=== PATIENT | female | born 1990 | race Caucasian/White ===

== ENCOUNTER 2019-11-03 11:00 | Observation (INO) | payer BC, OTHER, SELFPAY ==
--- NOTE | 2019-11-03 11:00 | OBADM ---
This patient, Loretta Samuel, admitted to the OB room [facility] Post [facility] for observation. Patient/family oriented to hospital policies and general routines including ID bracelet, bed and alarms, visiting hours, pain management, procedures, bathroom and other care routines, personal items, smoking policy, room service/diet, and visiting hours. Patient/Family are encouraged to report perceived risks to care and to ask questions if they do not understand what they are told or what they should do.
[2019-11-03 11:40] VITALS: TEMP 37.3
[2019-11-03 11:58] LABS: Add Urine Microscopic? YES; Appearance Urine Cloudy (Clear); Bacteria Urine 4+ /hpf; Bilirubin Urine Negative (Negative); Blood Urine Negative (Negative); Color Urine Yellow (Yellow); Glucose Urine UA Negative (Negative); Ketones Urine 2+ mg/dL (Negative); Leukocyte Esterase Ur 2+ LEU/UL (NEGATIVE); Mucus Urine Heavy /lpf; Nitrate Urine Negative (Negative); Protein Urine 1+ mg/dL (Negative); Specific Grav Ur 1.029 (1.001-1.035); Squamous Epithelial Cell Urine Many /hpf (Few)
[2019-11-03 12:00] VITALS: BMI 33.1
[2019-11-03] MEDS: DEXTROSE 5%/LACTATED RINGERS 1,000 ML 999 ML IV CONT (13:17)
[2019-11-03] MEDS: ONDANSETRON INJ 4 MG/2 ML VIAL IV PUSH (13:18)
[2019-11-03] MEDS: SODIUM CHLORIDE 0.9% IV 1,000 ML 100 ML IV CONT (15:21)
[2019-11-03] MEDS: PROMETHAZINE HCL 25 MG/ML AMPUL 12.5 MG IV PUSH (15:21)
[2019-11-03] MEDS: NITROFURANTOIN MONOHYD MACROCR 100 MG CAP PO (15:21)
--- NOTE | 2019-11-03 18:45 | PC.NURSE ---
Pt very agitated with staff. Pt was sleeping and had been for some time prior to MD providing dc orders. Pt defensive as we tried to get through dc instructions. Discussed new orders for antibiotics of which pt states i don't have a uti, i've had one before , also attempted to discuss remedies for reflux while continuing nexium, pt refused. Instructed MD ordered US for am. Pt would need to eat and drink nothing after MN and return in am for testing. Pt again agitated about not having US today. Discussed pt has not been NPO so test would have to be in am. RN did offer to call and get orders to allow pt to stay overnight and have testing in morning. Pt yelling and states i'm going home, you guys have [place], i'm never coming back here . Pt began yelling and cussing at staff. Pt demanded discharge paperwork, sign and left. Scripts for antibiotic and imaging were provided as well as discharge instructions. Pt encouraged to fill script and complete dosing even though she is not symptomatic. Also urged pt to get imaging taken care of even if she does decide to get services at another facility. Pt states be quite, i'm leaving, i'll take this up with [place], i need my weekend . Pt then ambulated out independently.
--- NOTE | 2019-11-07 06:38 | PM.OBTRLD ---
OB - Triage/Final Diagnosis Visit Information Reason for evaluation: threatened labor Evaluation Laboratory results: Laboratory Tests 11/03/19 11:42 Urine Color Yellow Urine Appearance Cloudy H Urine pH 5.0 Ur Specific [place] 1.029 Urine Protein 1+ H Urine Glucose (UA) Negative Urine Ketones 2+ H Ur Blood (Man) Negative Urine Nitrate Negative Urine Bilirubin Negative Urine Urobilinogen 2.0 H Ur Leukocyte Esterase 2+ H Urine RBC 6-10 H Urine WBC 10-15 H Ur Squamous Epith Cells Many H Urine Bacteria 4+ H Urine Mucus Heavy H
== END 2019-11-03 18:52 | disposition home or self-care (01) ==
PROVIDERS: Admitting Provider Obstetrics & Gynecology; Visit Provider Obstetrics & Gynecology
DX: O47.9 False labor, unspecified (principal); Z3A.00 Weeks of gestation of pregnancy not specified
CPT/HCPCS: 81001; 87086; 96361; 96374; 96375; A9270; G0378; G0379; J2405; J2550; J7030; J7121

== ENCOUNTER 2019-11-04 10:57 | Outpatient (CLI) | payer BC, OTHER, SELFPAY ==
--- NOTE | ~2019-11-04 | US_ITS ---
EXAMINATION: US right upper quadrant DATE: 11/04/2019 11:23 INDICATION: Nausea and vomiting during TECHNIQUE: Multiple grayscale and Doppler ultrasound images of the abdomen were obtained. COMPARISON: None FINDINGS: The visualized portion of the pancreatic body is normal in appearance. The pancreatic head and tail are obscured by shadowing bowel gas. Visualized proximal inferior vena cava is normal. Liver has norm al echogenicity and contour, with a smooth surface. No liver lesion identified. No intrahepatic bilia ry duct dilation suspected. Portal venous flow was seen in the hepatopetal, normal direction and has normal Doppler waveform. 7 x 3 x 4 mm no shadowing echogenic likely polyp at the neck of the otherwis e normal gallbladder. No shadowing cholelithiasis. The common bile duct measures 3 mm in diameter whi ch is normal. Sonographic Machado sign was reported as negative by the solar panel technician. IMPRESSION: 1. 7 mm likely gallbladder polyp at the neck of the gallbladder. Recommend six-month follow-up ultras ound. Reviewed, dictated and finalized at location A. IMPRESSION: 1. 7 mm likely gallbladder polyp at the neck of the gallbladder. Recommend six- month follow-up ultrasound.
== END 2019-11-04 10:58 | disposition home or self-care (01) ==
LOC: ANHIMG 11:04
PROVIDERS: Visit Provider Obstetrics & Gynecology
DX: O21.9 Vomiting of pregnancy, unspecified (principal); K82.4 Cholesterolosis of gallbladder
CPT/HCPCS: 76705

== ENCOUNTER 2020-01-24 08:36 | Outpatient (CLI) | payer BC, MEDICAID, SELFPAY ==
[2020-01-24 09:36] LABS: Glucose Fasting Gestational 86 mg/dL (>/=95)
[2020-01-24 10:23] LABS: Glucose 1 Hour Gest 147 mg/dL (>/=180)
[2020-01-24 11:19] LABS: Glucose 2 Hour Gest 114 mg/dL (>/= 155)
[2020-01-24 12:37] LABS: Glucose 3 Hour Gest 133 mg/dL (>/=140)
== END 2020-01-24 08:37 | disposition home or self-care (01) ==
PROVIDERS: Visit Provider Obstetrics & Gynecology
DX: Z34.80 Encounter for supervision of other normal pregnancy, unspecified trimester (principal); Z13.0 Encounter for screening for diseases of the blood and blood-forming organs and certain disorders involving the immune mechanism
CPT/HCPCS: 36415; 82951; 82952

== ENCOUNTER 2020-02-22 06:51 | Observation (INO) | payer BC, MEDICAID, SELFPAY ==
--- NOTE | ~2020-02-22 | US_ITS ---
EXAMINATION: US abdomen limited DATE: 02/22/2020 08:06 INDICATION: Abdominal pain. TECHNIQUE: Multiple grayscale and Doppler ultrasound images of the abdomen were obtained. COMPARISON: Ultrasound 11/04/2019 FINDINGS: The pancreas is obscured by bowel gas. The liver is normal without focal lesion. There is n ormal flow in main portal vein. The gallbladder is normal in size. No gallstones or gallbladder wall thickening. There is no sonographic Machado sign. The common duct is normal and measures 4 mm. IMPRESSION: 1. Normal right upper quadrant ultrasound. Reviewed, dictated and finalized at location A. OR ABAP DEVELOPER
[2020-02-22 07:16] VITALS: BP 109/63; PULSE 92
[2020-02-22 07:31] VITALS: BP 123/52; PULSE 98
[2020-02-22] MEDS: HYDROcodone/acetaminophen (*CRX) 10-325 MG TABLET 1 TAB PO (07:37)
[2020-02-22 07:42] VITALS: BMI 35.2
[2020-02-22 07:46] VITALS: BP 106/57; PULSE 85
[2020-02-22 07:46] LABS: Basophils Percent Auto 0.2 % (0.2-1.2); Eosinophils Absolute Auto 0.2 K/mm3 (0-0.3); Eosinophils Percent Auto 1.3 % (0-4.4); Hematocrit 33.8 % (37.0-47.0); Hemoglobin 11.3 g/dL (12.0-15.0); Immature Granulocyte Absolute 0.09 K/mm3 (0.00-0.031); Immature Granulocyte Percent A 0.7 % (0-0.5); Lymphocytes Absolute Auto 1.31 K/mm3 (0.9-3.2); Lymphocytes Percent Auto 10.6 % (18.3-44.2); Mean Corpuscular HGB Conc 33.4 g/dl (32-36); Mean Corpuscular Hemoglobin 28.4 pg (26-34); Mean Corpuscular Volume 84.9 fl (80-100); Mean Platelet Volume 10.4 fl (7.4-10.4); Monocytes Absolute Auto 0.8 K/mm3 (0.1-0.6); Monocytes Percent Auto 6.2 % (2.6-8.5); Platelet Count Result 279 k/mm3 (150-375); Red Blood Count 3.98 M/mm3 (4.2-5.4); White Blood Count 12.4 K/mm3 (4.5-10.0)
--- NOTE | 2020-02-22 07:50 | PM.OBTRLD ---
OB - Triage/Final Diagnosis Visit Information Date of evaluation: 02/22/20 Reason for evaluation: other (back pain) Evaluation Vital signs: Vital Signs - 24 hr 02/22/20 07:16 02/22/20 07:31 02/22/20 07:46 Pulse Rate 92 98 85 Blood Pressure 109/63 123/52 L 106/57 L
[2020-02-22 07:53] LABS: Alanine Aminotransferase 10 U/L (4-35); Albumin Level 3.1 g/dL (3.5-5.1); Alkaline Phosphatase 94 U/L (38-126); Anion Gap 9 mmol/L (8-16); Aspartate Amino Transferase 17 U/L (14-36); Bilirubin,Total 0.3 mg/dL (0.2-1.3); Calcium 8.7 mg/dL (8.4-10.2); Carbon Dioxide 22 mmol/L (22-30); Chloride 106 mmol/L (98-107); Estimated CRCL calculation 176 ml/min; Estimated Glomerular Filt Rate > 60; Glucose 98 mg/dL (65-105); Potassium 3.5 mmol/L (3.4-5.0); Sodium 137 mmol/L (137-145); Uric Acid 4.2 mg/dL (2.5-7.5)
[2020-02-22 07:54] LABS: Blood Urea Nitrogen < 2 mg/dL (7-17)
[2020-02-22] MEDS: TERBUTALINE SULFATE 1 MG/ML VIAL 0.25 MG SUB-Q (09:10)
[2020-02-22 09:12] VITALS: BP 103/60; PULSE 87
[2020-02-22 09:28] LABS: Add Urine Microscopic? YES; Appearance Urine Cloudy (Clear); Bacteria Urine Trace /hpf; Bilirubin Urine Negative (Negative); Blood Urine Negative (Negative); Budding Yeast Urine Present /hpf; Color Urine Yellow (Yellow); Glucose Urine UA Negative (Negative); Ketones Urine Trace mg/dL (Negative); Leukocyte Esterase Ur Negative LEU/UL (Negative); Mucus Urine Heavy /lpf; Nitrate Urine Negative (Negative); Protein Urine 2+ mg/dL (Negative); RBC Urine 21-50 /hpf (0-2); Specific Grav Ur 1.026 (1.001-1.035); Squamous Epithelial Cell Urine Few /hpf (Few); Transitional Epi Cells Urine Rare /hpf (None Seen); Urobilinogen Urine Negative mg/dL (<2.0)
[2020-02-22 09:31] VITALS: BP 82/64; PULSE 87
[2020-02-22 10:01] VITALS: BP 97/44; PULSE 81
[2020-02-22 10:31] LABS: Fetal Fibronectin Positive
[2020-02-22] MEDS: CEPHALEXIN 500 MG CAPSULE PO (10:31)
== END 2020-02-22 10:45 | disposition home or self-care (01) ==
PROVIDERS: Admitting Provider Obstetrics & Gynecology; Visit Provider Obstetrics & Gynecology
DX: O99.891 Other specified diseases and conditions complicating pregnancy (principal); M54.9 Dorsalgia, unspecified; Z3A.00 Weeks of gestation of pregnancy not specified
CPT/HCPCS: 36415; 76705; 80053; 81001; 82731; 84550; 85025; 87086; 96372; A9270; G0378; G0379; J3105

== ENCOUNTER 2020-03-27 05:05 | Observation (INO) | payer BC, MEDICAID, SELFPAY ==
[2020-03-27 07:10] LABS: Add Urine Microscopic? YES; Appearance Urine Clear (Clear); Bacteria Urine Trace /hpf; Bilirubin Urine Negative (Negative); Blood Urine Negative (Negative); Color Urine Yellow (Yellow); Glucose Urine UA Negative (Negative); Ketones Urine 2+ mg/dL (Negative); Leukocyte Esterase Ur Negative LEU/UL (NEGATIVE); Mucus Urine Heavy /lpf; Nitrate Urine Negative (Negative); Protein Urine 1+ mg/dL (Negative); RBC Urine 0-2 /hpf (0-2); Specific Grav Ur 1.024 (1.001-1.035); Squamous Epithelial Cell Urine Occasional /hpf (Few)
--- NOTE | 2020-03-27 07:19 | OBADM ---
This patient, Loretta Samuel, admitted to the OB room Labor/Delivery/Recovery 105 for observation. Patient/family oriented to hospital policies and general routines including ID bracelet, bed and alarms, visiting hours, pain management, procedures, bathroom and other care routines, personal items, smoking policy, room service/diet, and visiting hours. Patient/Family are encouraged to report perceived risks to care and to ask questions if they do not understand what they are told or what they should do.
--- NOTE | 2020-03-27 08:08 | P.PNOB_ITS ---
OB - Triage/Final Diagnosis Visit Information Date of evaluation: 03/27/20 Reason for evaluation: threatened labor Evaluation Laboratory results: Laboratory Tests 03/27/20 06:55 Urine Color Yellow Urine Appearance Clear Urine pH 6.0 Ur Specific [place] 1.024 Urine Protein 1+ H Urine Glucose (UA) Negative Urine Ketones 2+ H Ur Blood (Man) Negative Urine Nitrate Negative Urine Bilirubin Negative Urine Urobilinogen 2.0 H Ur Leukocyte Esterase Negative Urine RBC 0-2 Urine WBC 4-6 H Ur Squamous Epith Cells Occasional Urine Bacteria Trace Urine Mucus Heavy H
== END 2020-03-27 07:50 | disposition home or self-care (01) ==
PROVIDERS: Admitting Provider Obstetrics & Gynecology; Visit Provider Obstetrics & Gynecology
DX: O47.03 False labor before 37 completed weeks of gestation, third trimester (principal); Z3A.38 38 weeks gestation of pregnancy
CPT/HCPCS: 81001; G0378; G0379

== ENCOUNTER 2020-04-03 04:51 | Inpatient (IN) | payer BC, MEDICAID, SELFPAY ==
[2020-04-03] VITALS (124 sets, daily range): BP systolic 69–142; BP diastolic 37–91; PULSE 68–156; RESP 14–18; TEMP 36.4–37.3; O2SAT 84–100; BMI 35.4
--- NOTE | 2020-04-03 05:00 | LDADM ---
This patient, Loretta Samuel, was admitted to Labor/Delivery/Recovery 106 on 04/03/20 at 04:51. Plans for labor, pain management and were discussed with patient. Patient/family oriented to hospital policies and general routines including ID bracelet, bed and alarms, visiting hours, pain management, procedures, bathroom and other care routines, personal items, smoking policy, room service/diet and guest tray routines, infant security routines, and visiting hours. Patient/Family are encouraged to report perceived risks to care and to ask questions if they do not understand what they are told or what they should do. See OBIX for further documentation.
[2020-04-03] MEDS: OXYTOCIN 30 UNITS/NS 500 ML 30 UNITS/500 ML BAG 6 UNITS IV CONT (05:42)
[2020-04-03] MEDS: LACTATED RINGERS 1,000 ML 125 ML IV CONT ×3 (05:42→23:54)
[2020-04-03 05:46] LABS: Basophils Percent Auto 0.3 % (0.2-1.2); Eosinophils Absolute Auto 0.1 K/mm3 (0-0.3); Eosinophils Percent Auto 1.3 % (0-4.4); Hematocrit 34.6 % (37.0-47.0); Hemoglobin 11.1 g/dL (12.0-15.0); Immature Granulocyte Absolute 0.04 K/mm3 (0.00-0.031); Immature Granulocyte Percent A 0.4 % (0-0.5); Lymphocytes Absolute Auto 1.68 K/mm3 (0.9-3.2); Lymphocytes Percent Auto 17.1 % (18.3-44.2); Mean Corpuscular HGB Conc 32.1 g/dl (32-36); Mean Corpuscular Hemoglobin 25.9 pg (26-34); Mean Corpuscular Volume 80.8 fl (80-100); Monocytes Absolute Auto 0.6 K/mm3 (0.1-0.6); Monocytes Percent Auto 5.8 % (2.6-8.5); Neutrophils Absolute Auto 7.4 K/mm3 (1.3-6.7); Neutrophils Percent Auto 75.1 % (45.5-73.1); Platelet Count Result 271 k/mm3 (150-375); Red Blood Count 4.28 M/mm3 (4.2-5.4); Red Cell Distribution Width 13.9 % (11.5-14.5); White Blood Count 9.8 K/mm3 (4.5-10.0)
--- NOTE | 2020-04-03 06:30 | PM.IMHP ---
H&P: HPI History of Present Illness Date/Time: 04/03/20 06:30 Chief Complaint: iol Narrative: Loretta Samuel is a 29 year old female whose last menstrual period was 07/05/2019, EDC is 04/10/2020, confirmed by early ultrasound presents at 39 weeks gestation for induction of labor. She has a history of lupus on no meds and she is positive for carrying MTHFR. Her cervix is favorable. She did have an abnormal diabetic test but a normal 3hour GTT she is negative for group B strep Review of Systems Review of Systems: All systems reviewed & are unremarkable except as noted in HPI and below PMFSH Social History Social History Years smoked: 3 Smoking status: Former smoker Second hand tobacco smoke exposure: No Substance use: never Gender identity (if verbalized by the patient): Female Sexual Orientation (if Verbalized by the Patient): Straight or Heterosexual Spiritual care concerns: No Meds Home Medications and Allergies Home Medications Medication Instructions Recorded Confirmed Type omeprazole 1 mg PO DAILY 11/03/19 04/03/20 History albuterol sulfate 2 puff INHALATION PRN 04/03/20 04/03/20 History vit [id number] 1 tablet PO DAILY 04/03/20 04/03/20 History [Classic ] Allergies Allergy/AdvReac Type Severity Reaction Status Date / Time amoxicillin Allergy Severe Anaphylaxis Verified 03/11/20 15:16 Penicillins Allergy Severe Anaphylaxis Verified 03/11/20 15:16 ibuprofen Allergy Vomiting Verified 03/11/20 15:16 Latex, Natural Rubber Allergy Rash Verified 03/11/20 15:16 Vital Signs Vital Signs - 24 hr 04/03/20 05:12 04/03/20 05:31 04/03/20 06:01 Temperature 97.9 F Pulse Rate 82 93 Blood Pressure 120/61 130/67 Exam Const: General: no acute distress Eyes: General: appearance normal, both eyes and all related structures Neck: Neck: supple and no JVD Thyroid: thyroid normal Resp: Effort & Inspection: normal respiratory effort Auscultation: clear to auscultation bilaterally Cardio: Rate: regular rate Rhythm: regular rhythm GI: Inspection: non-distended GI Palp: Yes Soft to palpation, No Tenderness to palpation present (GI) and No Guarding due to palpation present (GI) Auscultation: normal bowel sounds : External Female Exam: normal external appearance Speculum Exam - Cervix: normal appearance of the cervix ( cervix 3 / 80/-1. AROM clear. FHTs reassuring) Skin: General skin exam: no rashes or lesions noted Extrem: General: normal to inspection and no edema Psych: Mental Status: mental status grossly normal Affect: normal affect H&P: Results Labs Labs: Short CBC 04/03/20 Range/Units 05:23 WBC 9.8 (4.5-10.0) K/mm3 Hgb 11.1 L (12.0-15.0) g/dL Hct 34.6 L (37.0-47.0) % Plt Count 271 (150-375) k/mm3 Assessment and Plan Additional Plan impression: Term with favorable cervix Plan: Medical induction of labor.
--- NOTE | 2020-04-03 07:58 | WPDANESEPP ---
Anes - Eval Pre Procedure Procedure: Labor epidural Date/Time: 04/03/20 07:58 Surgeon: Lucretia Henderson Preop Diagnosis: Abd pain with contractions Pre Op Diagnosis: IOL Patient Data Age: 29 Gender: F Height: 5 ft 2 in Weight: 88 kg Last Vital Signs Temp 97.9 F 04/03/20 05:12 Pulse 75 04/03/20 07:31 BP 124/59 L 04/03/20 07:31 Allergies Allergy/AdvReac Type Severity Reaction Status Date / Time amoxicillin Allergy Severe Anaphylaxis Verified 03/11/20 15:16 Penicillins Allergy Severe Anaphylaxis Verified 03/11/20 15:16 ibuprofen Allergy Vomiting Verified 03/11/20 15:16 Latex, Natural Rubber Allergy Rash Verified 03/11/20 15:16 Home Medications Medication Instructions Recorded Confirmed Type omeprazole 1 mg PO DAILY 11/03/19 04/03/20 History albuterol sulfate 2 puff INHALATION PRN 04/03/20 04/03/20 History vit [id number] 1 tablet PO DAILY 04/03/20 04/03/20 History [Classic ] Laboratory Tests 04/03/20 04/03/20 04/03/20 05:23 05:23 05:23 WBC 9.8 K/mm3 K/mm3 (4.5-10.0) RBC 4.28 M/mm3 M/mm3 (4.2-5.4) Hgb 11.1 g/dL L g/dL (12.0-15.0) Hct 34.6 % L % (37.0-47.0) MCV 80.8 fl fl (80-100) MCH 25.9 pg L pg (26-34) MCHC 32.1 g/dl g/dl (32-36) RDW 13.9 % % (11.5-14.5) Plt Count 271 k/mm3 k/mm3 (150-375) MPV 11.0 fl H fl (7.4-10.4) Immature Gran % (Auto) 0.4 % % (0-0.5) Neut % (Auto) 75.1 % H % (45.5-73.1) Lymph % (Auto) 17.1 % L % (18.3-44.2) [place] % (Auto) 5.8 % % (2.6-8.5) Eos % (Auto) 1.3 % % (0-4.4) Baso % (Auto) 0.3 % % (0.2-1.2) Lymph # (Auto) 1.68 K/mm3 K/mm3 (0.9-3.2) [place] # (Auto) 0.6 K/mm3 K/mm3 (0.1-0.6) Eos # (Auto) 0.1 K/mm3 K/mm3 (0-0.3) Baso # (Auto) 0.0 K/mm3 K/mm3 (0.0-0.1) Abs Immat Gran (auto) 0.04 K/mm3 H K/mm3 (0.00-0.031) Absolute Neuts (auto) 7.4 K/mm3 H K/mm3 (1.3-6.7) Absolute Nucleated RBC 0.0 K/mm3 K/mm3 (0.0-0.012) Nucleated RBC % 0.0 % % (0.0-0.2) RPR Pending Blood Type A Positive Antibody Screen Negative : gestational age HCG: positive Patient hx anesthesia problems: other (possible lidocaine reaction) Family hx anesthesia problems: none PMFSH Past Medical History Medical History History of smoking Lupus Obesity and not yet delivered Social History Social History Years smoked: 3 Smoking status: Former smoker Second hand tobacco smoke exposure: No Substance use: never Gender identity (if verbalized by the patient): Female Sexual Orientation (if Verbalized by the Patient): Straight or Heterosexual Spiritual care concerns: No Exam Day of Procedure 04/03/20 07:58
[2020-04-03] MEDS: FAMOTIDINE 20 MG/2 ML VIAL IV PUSH (08:12)
[2020-04-03] MEDS: fentaNYL CITRATE INJ (*CRX) 100 MCG/2 ML VIAL 50 MCG IV PUSH (08:43)
[2020-04-03 10:38] LABS: Rapid Plasma Reagin Non-Reactive (NonReactive)
[2020-04-03] MEDS: ONDANSETRON INJ 4 MG/2 ML VIAL IV PUSH ×2 (10:44→23:55)
--- NOTE | 2020-04-03 11:14 | P.PNOB_ITS ---
OB - PN: Subj Subjective Date/time seen: 04/03/20 11:14 cx 4.5 by rn exam fhts reassuring OB - PN: Obj Data Labs CBC & Chem 7: 04/03/20 05:23 Labs: Laboratory Results - last 24 hr 04/03/20 04/03/20 04/03/20 05:23 05:23 05:23 WBC 9.8 RBC 4.28 Hgb 11.1 L Hct 34.6 L MCV 80.8 MCH 25.9 L MCHC 32.1 RDW 13.9 Plt Count 271 MPV 11.0 H Immature Gran % (Auto) 0.4 Neut % (Auto) 75.1 H Lymph % (Auto) 17.1 L [place] % (Auto) 5.8 Eos % (Auto) 1.3 Baso % (Auto) 0.3 Lymph # (Auto) 1.68 [place] # (Auto) 0.6 Eos # (Auto) 0.1 Baso # (Auto) 0.0 Abs Immat Gran (auto) 0.04 H Absolute Neuts (auto) 7.4 H Absolute Nucleated RBC 0.0 Nucleated RBC % 0.0 RPR Non-reactive Blood Type A Positive Antibody Screen Negative OB - PN A/P Time Spent With Patient Time: Total time spent is greater than 50% in coordination of care (as docume nted) at patient's floor/unit and/or counseling patient:
--- NOTE | 2020-04-03 14:10 | P.PNOB_ITS ---
OB - PN: Subj Subjective Date/time seen: 04/03/20 14:10 cx complete. pushing fhts reassuring OB - PN: Obj Data Labs CBC & Chem 7: 04/03/20 05:23 Labs: Laboratory Results - last 24 hr 04/03/20 04/03/20 04/03/20 05:23 05:23 05:23 WBC 9.8 RBC 4.28 Hgb 11.1 L Hct 34.6 L MCV 80.8 MCH 25.9 L MCHC 32.1 RDW 13.9 Plt Count 271 MPV 11.0 H Immature Gran % (Auto) 0.4 Neut % (Auto) 75.1 H Lymph % (Auto) 17.1 L [place] % (Auto) 5.8 Eos % (Auto) 1.3 Baso % (Auto) 0.3 Lymph # (Auto) 1.68 [place] # (Auto) 0.6 Eos # (Auto) 0.1 Baso # (Auto) 0.0 Abs Immat Gran (auto) 0.04 H Absolute Neuts (auto) 7.4 H Absolute Nucleated RBC 0.0 Nucleated RBC % 0.0 RPR Non-reactive Blood Type A Positive Antibody Screen Negative OB - PN A/P Time Spent With Patient Time: Total time spent is greater than 50% in coordination of care (as do cumented) at patient's floor/unit and/or counseling patient:
--- NOTE | 2020-04-03 16:09 | P.PNOB_ITS ---
OB - PN: Subj Subjective Date/time seen: 04/03/20 16:09 complete/pushing fhts ok OB - PN: Obj Data Labs CBC & Chem 7: 04/03/20 05:23 Labs: Laboratory Results - last 24 hr 04/03/20 04/03/20 04/03/20 05:23 05:23 05:23 WBC 9.8 RBC 4.28 Hgb 11.1 L Hct 34.6 L MCV 80.8 MCH 25.9 L MCHC 32.1 RDW 13.9 Plt Count 271 MPV 11.0 H Immature Gran % (Auto) 0.4 Neut % (Auto) 75.1 H Lymph % (Auto) 17.1 L [place] % (Auto) 5.8 Eos % (Auto) 1.3 Baso % (Auto) 0.3 Lymph # (Auto) 1.68 [place] # (Auto) 0.6 Eos # (Auto) 0.1 Baso # (Auto) 0.0 Abs Immat Gran (auto) 0.04 H Absolute Neuts (auto) 7.4 H Absolute Nucleated RBC 0.0 Nucleated RBC % 0.0 RPR Non-reactive Blood Type A Positive Antibody Screen Negative OB - PN A/P Time Spent With Patient Time: Total time spent is greater than 50% in coordination of care (as documented) at patient's floor/unit and/or counseling patient:
--- NOTE | 2020-04-03 17:03 | P.PNOB_ITS ---
OB - PN: Subj Subjective Date/time seen: 04/03/20 17:03 no progress fhts ok offered section. risks/benefits OB - PN: Obj Data Labs CBC & Chem 7: 04/03/20 05:23 Labs: Laboratory Results - last 24 hr 04/03/20 04/03/20 04/03/20 05:23 05:23 05:23 WBC 9.8 RBC 4.28 Hgb 11.1 L Hct 34.6 L MCV 80.8 MCH 25.9 L MCHC 32.1 RDW 13.9 Plt Count 271 MPV 11.0 H Immature Gran % (Auto) 0.4 Neut % (Auto) 75.1 H Lymph % (Auto) 17.1 L [place] % (Auto) 5.8 Eos % (Auto) 1.3 Baso % (Auto) 0.3 Lymph # (Auto) 1.68 [place] # (Auto) 0.6 Eos # (Auto) 0.1 Baso # (Auto) 0.0 Abs Immat Gran (auto) 0.04 H Absolute Neuts (auto) 7.4 H Absolute Nucleated RBC 0.0 Nucleated RBC % 0.0 RPR Non-reactive Blood Type A Positive Antibody Screen Negative OB - PN A/P Time Spent With Patient Time: Total time spent is greater than 50% in coordination of care (as documented) at patient's floor/unit and/or counseling patient:
--- NOTE | 2020-04-03 18:26 | PM.PROC ---
Procedure Note - Detailed Date of procedure: 04/03/20 Pre-op diagnosis: IOL Surgeon: Claude Ervin MD Postop diagnosis: Failure to progress Procedure: Low-transverse section Findings: Male infant 6 lb 3 oz Apgars 6 and 7 at 1 and 5 minutes respectively with nuchal cord x2 Q BL: 370cc Anesthesia spinal Complications: None Description of procedure: The patient was prepped draped in normal sterile fashion placed in the supine position. Under excellent spinal anesthetic the abdomen was entered in a Pfannenstiel fashion progressed to layers to the fascia. Fascia incised in upward outward fashion bilaterally. Underlying muscles were sharply dissected. Parietal peritoneum L by Gabby clamps. A bladder blade was placed. A bladder flap was formed. The bladder blade returned. A low-transverse incision made the head delivered in the MARY position. Nuchal cord noted be loose x2 relieve round occiput. Anterior posterior shoulder delivered spontaneously. Cord clamped x2 and cut and infant passed off the table with a cry. Placenta delivered intact manually. Uterus inspected for any debris in none present. The incision was closed with 0 Vicryl from lateral edge to lateral edge. This was followed by 2nd imbricating running locking 0 Vicryl from lateral edge to lateral edge. Hemostasis was assured. Blood loss was estimated. The ovaries and tubes appeared within normal limits. The incision inspected 1 last time and noted be hemostatic. The uterus returned to the abdomen. The laps removed and accounted for. The uterine incision inspected 1 last time and noted be hemostatic. The fascia closed with continuous running 0 Vicryl from lateral edge to midline bilaterally. Irrigation of the subcutaneous layer and the skin closed with 4 O Monocryl and glue. Blood loss was 370 by Q BL. All sponge, needle, instrument counts were correct. There were no immediate complications
--- NOTE | 2020-04-03 20:45 | PC.NURSE ---
This patient, Loretta Samuel, was received from Labor & Delivery on 04/03/20 at 2045. Patient/family oriented to unit policies and routines
--- NOTE | 2020-04-03 21:17 | PC.NURSE ---
Pitocin bag from labor and delivery used as the 125ml/hr. 450mls left in the bag prior to administration.
[2020-04-03] MEDS: HYDROcodone/acetaminophen (*CRX) 5-325 MG TABLET 1 TAB PO (23:55)
[2020-04-04 00:29] VITALS: BP 99/54; PULSE 84; RESP 18; TEMP 37; O2SAT 98
[2020-04-04 04:00] VITALS: BP 97/45; PULSE 79; RESP 16; TEMP 37.1; O2SAT 97
[2020-04-04] MEDS: HYDROcodone/acetaminophen (*CRX) 10-325 MG TABLET 1 TAB PO ×3 (04:30→15:52)
[2020-04-04 04:58] LABS: Hematocrit 29.1 % (37.0-47.0); Hemoglobin 9.6 g/dL (12.0-15.0)
--- NOTE | 2020-04-04 05:06 | P.PNOB_ITS ---
OB - PN: Subj Subjective Date/time seen: 04/04/20 05:06 Patient comments: no complaints and pain well controlled baby status: doing well OB - PN: Obj Data Labs CBC & Chem 7: 04/03/20 05:23 Labs: Laboratory Results - last 24 hr 04/03/20 04/03/20 04/03/20 05:23 05:23 05:23 WBC 9.8 RBC 4.28 Hgb 11.1 L Hct 34.6 L MCV 80.8 MCH 25.9 L MCHC 32.1 RDW 13.9 Plt Count 271 MPV 11.0 H Immature Gran % (Auto) 0.4 Neut % (Auto) 75.1 H Lymph % (Auto) 17.1 L [place] % (Auto) 5.8 Eos % (Auto) 1.3 Baso % (Auto) 0.3 Lymph # (Auto) 1.68 [place] # (Auto) 0.6 Eos # (Auto) 0.1 Baso # (Auto) 0.0 Abs Immat Gran (auto) 0.04 H Absolute Neuts (auto) 7.4 H Absolute Nucleated RBC 0.0 Nucleated RBC % 0.0 RPR Non-reactive Blood Type A Positive Antibody Screen Negative OB - PN A/P Plan day: 1 Plan: routine care Time Spent With Patient Time: Total time spent is greater than 50% in coordination of care (as documented) at patient's floor/unit and/or counseling patient: Time with patient: less than 15 minutes Review of Systems Review of Systems: All systems reviewed & are unremarkable except as noted in HPI and below Exam Const: General: no acute distress Eyes: General: appearance normal, both eyes and all related structures Neck: Neck: supple and no JVD Thyroid: thyroid normal Resp: Effort & Inspection: normal respiratory effort Auscultation: clear to auscultation bilaterally Cardio: Rate: regular rate Rhythm: regular rhythm GI: Inspection: incision (cdi) : General: Yes bladder normal to palpation External Female Exam: normal external appearance Speculum Exam - Vagina: normal vaginal discharge and No vaginal bleeding Speculum Exam - Cervix: nontender Bimanual exam- vagina & uterus: bladder normal to palpation and No Cervical tenderness present OB/external & speculum: No vaginal bleeding Skin: General skin exam: no rashes or lesions noted Extrem: General: normal to inspection and no edema Psych: Mental Status: mental status grossly normal Affect: normal affect
[2020-04-04 08:00] VITALS: BP 110/58; PULSE 90; RESP 18; TEMP 36.2; O2SAT 100
--- NOTE | 2020-04-04 08:14 | WPDANLDPN2 ---
Anes-Prog Note L&D Date/Time: 04/04/20 08:14 Comfortable throughout: section Neuraxial method: spinal Epidural/Spinal procedure site: clean & non-tender Neuro status: Neuro function grossly intact. Cardiovascular status: normal Respiratory status: normal Airway patency: baseline Mental status: baseline Post-Op hydration status: normal Vital Signs: Last Vital Signs Temp 37.1 C 04/04/20 04:00 Pulse 79 04/04/20 04:00 Resp 16 04/04/20 04:00 BP 97/45 L 04/04/20 04:00 Pulse Ox 97 04/04/20 04:00 Pain score (VAS): 7 I/O: Intake & Output 04/03/20 04/04/20 04/04/20 23:59 07:59 15:59 Intake Total 350 Output Total 348 1000 Balance -348 -650 Post-procedural complaints: none Patient feedback: Patient satisfied with anesthetic care.
--- NOTE | 2020-04-04 08:14 | WPDANLDNPN2 ---
Anes-Prog Note L&D-Neuraxial Date/Time: 04/04/20 08:14 Neuraxial medications: intrathecal PF morphine Opiod-related complaints: none Patient feedback: Patient satisfied with post-operative pain management.
--- NOTE | 2020-04-04 08:30 | PC.NURSE ---
Encouraged pt. that she will need to get up and sit in chair to keep from building up with gas. Pt. refused at this time.
[2020-04-04] MEDS: SIMETHICONE 80 MG TAB.CHEW PO ×5 (08:50→23:24)
[2020-04-04] MEDS: MULTIVIT/MIN/PREN/FOL AC/IRON TABLET 1 TAB PO (08:50)
[2020-04-04] MEDS: HYDROcodone/acetaminophen (*CRX) 5-325 MG TABLET 1 TAB PO (08:50)
[2020-04-04] MEDS: LORATADINE 10 MG TABLET PO (08:50)
[2020-04-04] MEDS: DOCUSATE SODIUM 100 MG CAPSULE PO ×2 (08:51→15:52)
[2020-04-04] MEDS: POLYSACCHARIDE IRON COMPLEX 150 MG CAPSULE PO ×2 (08:52→15:52)
--- NOTE | 2020-04-04 10:30 | PC.NURSE ---
Pt sleeping quietly at this time when observed. Respirations even and unlabored. No distress noted. in nursery.
[2020-04-04 12:00] VITALS: BP 108/64; PULSE 86; RESP 18; TEMP 36.6
[2020-04-04] MEDS: NAPROXEN SODIUM 220 MG TABLET PO (12:09)
--- NOTE | 2020-04-04 12:10 | PC.NURSE ---
Pt. crying and stating that she is in pain. Right shoulder hurting and feels as if she has pulled a muscle. Instructed pt. that symptoms were gas related and she needs to ambulate in hallway is help with movement of air trapped in abdomen. States that her pain is under the ribs on right side and it is hard to breathe in deep. Again, reinforced to pt. that she needs to ambulate. Pt very upset and refusing to move at this time. Heating pad applied to right shoulder. Pain meds given.
[2020-04-04] MEDS: KETOROLAC 30 MG/ML VIAL (*BKC) IV PUSH (15:53)
[2020-04-04 16:00] VITALS: BP 108/64; PULSE 86; RESP 18; TEMP 36.6
[2020-04-04 19:20] VITALS: BP 103/51; PULSE 77; RESP 18; TEMP 36.8
[2020-04-05] MEDS: KETOROLAC 10 MG TABLET PO ×4 (01:40→20:43)
--- NOTE | 2020-04-05 06:57 | PM.OBPNVD ---
OB - PN: Subj Subjective Date/time seen: 04/05/20 06:57 Patient comments: no complaints and pain well controlled baby status: doing well OB - PN: Obj Data Labs CBC & Chem 7: 04/04/20 04:22 OB - PN A/P Plan day: 2 Plan: routine care Time Spent With Patient Time: Total time spent is greater than 50% in coordination of care (as documented) at patient's floor/unit and/or counseling patient: Time with patient: less than 15 minutes Review of Systems Review of Systems: All systems reviewed & are unremarkable except as noted in HPI and below Exam Const: General: no acute distress Eyes: General: appearance normal, both eyes and all related structures Neck: Neck: supple and no JVD Thyroid: thyroid normal Resp: Effort & Inspection: normal respiratory effort Auscultation: clear to auscultation bilaterally Cardio: Rate: regular rate Rhythm: regular rhythm GI: Inspection: non-distended GI Palp: Yes Soft to palpation, No Tenderness to palpation present (GI) and No Guarding due to palpation present (GI) Auscultation: normal bowel sounds : General: Yes bladder normal to palpation External Female Exam: normal external appearance Speculum Exam - Vagina: normal vaginal discharge and No vaginal bleeding Speculum Exam - Cervix: nontender Bimanual exam- vagina & uterus: bladder normal to palpation and No Cervical tenderness present OB/external & speculum: No vaginal bleeding Skin: General skin exam: no rashes or lesions noted Extrem: General: normal to inspection and no edema Psych: Mental Status: mental status grossly normal Affect: normal affect
[2020-04-05] MEDS: SIMETHICONE 80 MG TAB.CHEW PO ×3 (07:14→20:43)
[2020-04-05 07:15] VITALS: BP 105/61; PULSE 85; RESP 18; TEMP 36.6; O2SAT 97
[2020-04-05] MEDS: DOCUSATE SODIUM 100 MG CAPSULE PO ×2 (10:35→20:43)
[2020-04-05] MEDS: MULTIVIT/MIN/PREN/FOL AC/IRON TABLET 1 TAB PO (10:35)
[2020-04-05] MEDS: SERTRALINE HCL 50 MG TABLET PO (10:35)
[2020-04-05] MEDS: POLYSACCHARIDE IRON COMPLEX 150 MG CAPSULE PO ×2 (10:35→20:43)
--- NOTE | 2020-04-05 16:54 | PC.NURSE ---
0900 Breast feeding note; pt asked that nurse not visit her today. This request was honored.
[2020-04-05] MEDS: ZOLPIDEM TARTRATE (*CRX) 5 MG TABLET PO (20:43)
[2020-04-05 20:45] VITALS: BP 111/65; PULSE 79; RESP 18; TEMP 36.9; O2SAT 100
[2020-04-06] MEDS: KETOROLAC 10 MG TABLET PO ×2 (02:48→09:38)
[2020-04-06] MEDS: SIMETHICONE 80 MG TAB.CHEW PO ×2 (02:48→09:38)
--- NOTE | 2020-04-06 06:44 | P.DS_ITS ---
DS: Admitting Diagnosis Admitting Diagnosis Admitting Diagnosis: term iup DS: Summary Hospital Course Reason for hospitalization: [facility] Hospital Course: The patient was admitted for induction of labor. She failed to progress and underwent low-transverse section. She has a history of depression and anxiety and was began Zoloft. She was not homicidal or suicidal and contract was undertaken per protocol if either of these things occurred. She remained afebrile. She was up, without difficulty, passing gas, eating, ambulating, and generally without complaints Time Spent with Patient Time attestation: Total time spent providing and/or coordinating discharge services: Exam Const: General: no acute distress Eyes: General: appearance normal, both eyes and all related structures Neck: Neck: supple and no JVD Thyroid: thyroid normal Resp: Effort & Inspection: normal respiratory effort Auscultation: clear to auscultation bilaterally Cardio: Rate: regular rate Rhythm: regular rhythm GI: Inspection: non-distended GI Palp: Yes Soft to palpation, No Tenderness to palpation present (GI) and No Guarding due to palpation present (GI) Auscultation: normal bowel sounds : General: Yes bladder normal to palpation External Female Exam: normal external appearance Speculum Exam - Vagina: normal vaginal discharge and No vaginal bleeding Speculum Exam - Cervix: nontender Bimanual exam- vagina & uterus: bladder normal to palpation and No Cervical tenderness present OB/external & speculum: No vaginal bleeding Skin: General skin exam: no rashes or lesions noted Extrem: General: normal to inspection and no edema Psych: Mental Status: mental status grossly normal Affect: normal affect Discharge Plan Discharge Attending physician on discharge: Claude Ervin Discharging Clinician: Claude Ervin Patient Disposition: Home, Self-Care Activity: may shower, no straining, may drive after 2 weeks and pelvic rest Diet: heart healthy Patient Instructions: Antibiotic Form Stand Alone Forms: General Discharge Information Follow-up/Referrals: Claude Ervin MD [Physician] - Discharge Medications: New hydrocodone-acetaminophen [[place]] 5-325 mg tablet 1 tablet PO Q4H PRN (Reason: pain) Qty: 30 RF: 0 sertraline [Zoloft] 50 mg tablet 50 mg PO DAILY Qty: 60 RF: 0 Continued omeprazole 40 mg capsule,delayed release(DR/EC) 1 mg PO DAILY RF: 0 albuterol sulfate 90 mcg/actuation HFA aerosol inhaler 2 puff INHALATION PRN RF: 0 Classic 28 mg iron- 800 mcg Tablet 1 tablet PO DAILY RF: 0 Date of admission: 04/03/20 04:51 Primary Care Provider: PHYSICIAN,BOILER BLOWER Admitting Provider: Claude Ervin Attending physician on admission: Claude Ervin Condition: Stable
[2020-04-06 07:30] VITALS: BP 115/80; PULSE 66; RESP 20; TEMP 36.2
[2020-04-06] MEDS: MEASLES,MUMPS,RUBELLA VACCINE 0.5 ML VIAL (09:38)
[2020-04-06] MEDS: SERTRALINE HCL 50 MG TABLET PO (09:38)
[2020-04-06] MEDS: DOCUSATE SODIUM 100 MG CAPSULE PO (09:38)
[2020-04-06] MEDS: MULTIVIT/MIN/PREN/FOL AC/IRON TABLET 1 TAB PO (09:38)
[2020-04-06] MEDS: POLYSACCHARIDE IRON COMPLEX 150 MG CAPSULE PO (09:38)
[2020-04-08 09:53] VITALS: BP 114/67; PULSE 85; RESP 20; TEMP 36.5; O2SAT 100
== END 2020-04-06 14:05 | disposition home or self-care (01) | DRG 787 ==
LOC: ANHLDR 18:54 → ANHOB2 21:02
PROVIDERS: Admitting Provider Obstetrics & Gynecology; Visit Provider Obstetrics & Gynecology
PROC: 10D00Z1 Extraction of Products of Conception, Low, Open Approach (ICD-10-PCS; CPT 59514; principal; 2020-04-03 17:15)
DX: O62.1 Secondary uterine inertia (principal); E72.12 Methylenetetrahydrofolate reductase deficiency; O99.284 Endocrine, nutritional and metabolic diseases complicating childbirth; O69.81X0 Labor and delivery complicated by cord around neck, without compression, not applicable or unspecified; O99.344 Other mental disorders complicating childbirth; F41.8 Other specified anxiety disorders; Z3A.39 39 weeks gestation of pregnancy; Z37.0 Single live birth; Z87.891 Personal history of nicotine dependence
CPT/HCPCS: 36415; 85014; 85018; 85025; 86592; 86850; 86900; 86901; 90710; A9270; J0131; J1885; J2274; J2370; J2405; J2590; J2795; J3010; J7120

== ENCOUNTER 2020-05-08 06:05 | Emergency (ER) | payer BC, MEDICAID, SELFPAY ==
--- NOTE | ~2020-05-08 | CT_ITS ---
EXAMINATION: CT abdomen pelvis w con DATE: 05/08/2020 08:24 INDICATION: Infection with draining pus and blood from a recent section incision. TECHNIQUE: Computed tomography (CT) of the abdomen and pelvis was performed with 100 mL Omnipaque-350 intravenous contrast. Automated exposure control and iterative reconstruction technique were employe d. The dose-length product was 420.00 mGy-cm. COMPARISON: None FINDINGS: Lung bases are clear. Heart size is normal. No pericardial or pleural effusion. Liver, gallbladder, s pleen, pancreas, bilateral adrenal glands and kidneys are normal. Bowels including the appendix are n ormal. There is wall thickening of the bladder likely due to decompressed state which limits evaluati on.. Anteverted uterus with low-attenuation section scar along the anterior lower uterine se gment. Bilateral ovaries are unremarkable with subcentimeter ovarian follicles. Small amount of likel y physiologic free fluid in the pelvis. No free intraperitoneal gas or intraperitoneal abscess. There is some stranding and a few small foci of gas along a transverse section scar along the ant erior pelvic wall. No discrete abscess. Bones are unremarkable. IMPRESSION: 1. Changes consistent with recent section with small amount of stranding in a few foci of ga s along the anterior pelvic wall surgical wound. No abscess. 2. Wall thickening of the bladder likely due to decompressed state but would correlate with urinalysi s to exclude cystitis. Reviewed, dictated and finalized at location [facility]. [facility] IMPRESSION: 1. Changes consistent with recent section with small amount of strandi ng in a few foci of gas along the anterior pelvic wall surgical wound. No absce ss. 2. Wall thickening of the bladder likely due to decompressed state but would co rrelate with urinalysis to exclude cystitis.
[2020-05-08 06:18] VITALS: BP 115/62; PULSE 94; RESP 18; TEMP 36.2; O2SAT 98
--- NOTE | 2020-05-08 07:14 | ED.FEMALEGU ---
HPI - Female Genitourinary General Chief complaint: Urogenital-Female Stated complaint: open and gushing blood Time Seen by Provider: 05/08/20 07:04 History of Present Illness HPI Narrative: 29 yo female presents to the ED for a surgical wound problem. She had a 4 days ago. She has had increasing pain and fullness under the surgical wound for a couple of days. Last night while she was sleeping a small area of the wound opened. She reports that it mostly drained blood, but there were also white chunks. No fever, chills, abdominal pain, nausea. Related Data Home Medications Medication Instructions Recorded Confirmed omeprazole 1 mg PO DAILY 11/03/19 04/03/20 Classic 1 tablet PO DAILY 04/03/20 04/03/20 albuterol sulfate 2 puff INHALATION PRN 04/03/20 04/03/20 Allergies Allergy/AdvReac Type Severity Reaction Status Date / Time amoxicillin Allergy Severe Anaphylaxis Verified 05/08/20 06:25 Penicillins Allergy Severe Anaphylaxis Verified 05/08/20 06:25 Latex, Natural Rubber Allergy Rash Verified 05/08/20 06:25 ibuprofen AdvReac Vomiting Verified 05/08/20 06:25 Review of Systems Review of Systems: All systems reviewed & are unremarkable except as noted in HPI and below Constitutional: Constitutional: Denies chills ENT: Reports system reviewed and no additional complaints, except as documented Cardiovascular: Cardiovascular: Denies chest pain Respiratory: Respiratory: Denies dyspnea Gastrointestinal: Gastrointestinal: Denies nausea and Denies vomiting Genitourinary: Genitourinary: Denies dysuria Musculoskeletal: Musculoskeletal: Reports no additional musculoskeletal complaints Neurologic: Denies numbness and Denies weakness [facility] Past Medical History Medical History History of smoking Lupus Obesity and not yet delivered Social History Social History Years smoked: 3 Smoking status: Former smoker Second hand tobacco smoke exposure: No Substance use: never Gender identity (if verbalized by the patient): Female Spiritual care concerns: No Exam Const: General: healthy appearing, no acute distress and alert Orientation/consciousness: patient oriented x3 HENMT: Head: normal to inspection Neck: Neck: normal visual inspection Resp: Effort & Inspection: normal respiratory effort Auscultation: clear to auscultation bilaterally, no rales, no rhonchi and no wheezes Cardio: Jugular venous distension: no JVD Rate: regular rate Rhythm: regular rhythm Heart sounds: no murmurs GI: Inspection: non-distended GI Palp: Yes Soft to palpation Other: Tender around scar. 1 cm area of wound dehiscence. cloudy serosanguineous drainage. Skin: General skin exam: normal color Neuro: General: patient oriented x3 and moves all extremities Speech: normal speech Extrem: General: no edema Psych: Appearance: well kempt Affect: normal affect Course Vital Signs Vital signs: Vital Signs Temperature 36.2 C L 05/08/20 06:18 Pulse Rate 94 05/08/20 06:18 Respiratory Rate 18 05/08/20 06:18 Blood Pressure 115/62 05/08/20 06:18 Pulse Oximetry 98 05/08/20 06:18 Temperature 36.2 C L 05/08/20 06:18 Pulse Rate 94 05/08/20 06:18 Respiratory Rate 18 05/08/20 06:18 Blood Pressure 115/62 05/08/20 06:18 Pulse Oximetry 98 05/08/20 06:18 MDM - Female Genitourinary MDM Narrative Medical decision making narrative: No significant fluid collection on CT. Case discussed with Dr. Lucretia Henderson. Will put her on Bactrim and have her follow-up next week. Medical Records Attestation: I reviewed the patient's medical records. Lab Data Attestation: I reviewed the patient's lab results. Result diagrams: 05/08/20 07:45 05/08/20 07:45 Labs: Lab Results 05/08/20 05/08/20 05/08/20 Range/Units 07:45 07
[2020-05-08] MEDS: MORPHINE SULFATE (*CRX) 4 MG/ML INJ 2 MG IV PUSH (07:44)
[2020-05-08 07:55] LABS: Basophils Percent Auto 0.3 % (0.2-1.2); Eosinophils Absolute Auto 0.2 K/mm3 (0-0.3); Eosinophils Percent Auto 2.1 % (0-4.4); Hematocrit 37.1 % (37.0-47.0); Hemoglobin 11.4 g/dL (12.0-15.0); Immature Granulocyte Absolute 0.03 K/mm3 (0.00-0.031); Immature Granulocyte Percent A 0.3 % (0-0.5); Lymphocytes Absolute Auto 1.35 K/mm3 (0.9-3.2); Lymphocytes Percent Auto 15.4 % (18.3-44.2); Mean Corpuscular HGB Conc 30.7 g/dl (32-36); Mean Corpuscular Hemoglobin 25.4 pg (26-34); Mean Corpuscular Volume 82.6 fl (80-100); Mean Platelet Volume 10.6 fl (7.4-10.4); Monocytes Absolute Auto 0.4 K/mm3 (0.1-0.6); Monocytes Percent Auto 4.8 % (2.6-8.5); Neutrophils Absolute Auto 6.8 K/mm3 (1.3-6.7); Neutrophils Percent Auto 77.1 % (45.5-73.1); Platelet Count Result 295 k/mm3 (150-375); Red Blood Count 4.49 M/mm3 (4.2-5.4); Red Cell Distribution Width 14.9 % (11.5-14.5); White Blood Count 8.8 K/mm3 (4.5-10.0)
[2020-05-08 08:07] LABS: Anion Gap 6 mmol/L (8-16); Blood Urea Nitrogen 13 mg/dL (7-17); Calcium 8.2 mg/dL (8.4-10.2); Carbon Dioxide 30 mmol/L (22-30); Chloride 105 mmol/L (98-107); Estimated CRCL calculation 99 ml/min; Estimated Glomerular Filt Rate > 60; Glucose 95 mg/dL (65-105); Potassium 4.1 mmol/L (3.4-5.0); Sodium 141 mmol/L (137-145)
[2020-05-08 08:55] LABS: Add Urine Microscopic? YES; Appearance Urine Clear (Clear); Bacteria Urine Trace /hpf; Bilirubin Urine Negative (Negative); Blood Urine Negative (Negative); Color Urine Yellow (Yellow); Glucose Urine UA Negative (Negative); Ketones Urine Negative (Negative); Leukocyte Esterase Ur Negative LEU/UL (Negative); Mucus Urine Heavy /lpf; Nitrate Urine Negative (Negative); Protein Urine 2+ mg/dL (Negative); RBC Urine 0-2 /hpf (0-2); Squamous Epithelial Cell Urine Rare /hpf (Few)
[2020-05-08 08:57] LABS: Specific Grav Ur 1.036 (1.001-1.035)
== END 2020-05-08 09:17 | disposition home or self-care (01) ==
PROVIDERS: Emergency Provider Emergency Medicine
DX: O90.2 Hematoma of obstetric wound (principal); O99.215 Obesity complicating the puerperium; E66.9 Obesity, unspecified; Z87.891 Personal history of nicotine dependence
CPT/HCPCS: 36415; 74177; 80048; 81001; 81025; 85025; 87086; 96374; 99284; A9270; J2270; Q9967

== ENCOUNTER 2020-07-24 13:50 | Outpatient (CLI) | payer BC, MEDICAID, SELFPAY ==
--- NOTE | ~2020-07-24 | CT_ITS ---
EXAMINATION: CT abdomen wo con DATE: 07/24/2020 14:30 INDICATION: Umbilical drainage TECHNIQUE: Computed tomography (CT) of the abdomen was performed without intravenous contrast. The do se-length product (DLP) was 286.80 mGy-cm. Automated exposure control and iterative reconstruction te chnique were employed. COMPARISON: 05/08/2020 FINDINGS: Minimal dependent atelectasis is present in the lung bases. The heart size is normal. The l iver, spleen, pancreas, and adrenal glands are normal. There is mild distention of the gallbladder wh ich could be related to fasting state. The kidneys are unremarkable. There are no pathologically enla rged abdominal lymph nodes. A moderate volume of colonic stool is present. The appendix is normal. Th ere is no free intraperitoneal gas or evidence of bowel obstruction. There is mild skin thickening of the umbilicus and stranding of the periumbilical fat without evidence of focal fluid collection. IMPRESSION: 1. Mild skin thickening of the umbilicus without evidence of abscess. Reviewed, dictated and finalized at location A.
== END 2020-07-24 13:51 | disposition home or self-care (01) ==
PROVIDERS: Visit Provider Obstetrics & Gynecology
DX: L02.216 Cutaneous abscess of umbilicus (principal); Q64.4 Malformation of urachus
CPT/HCPCS: 74150

== ENCOUNTER 2020-07-30 07:30 | Outpatient (RCR) | payer BC, MEDICAID, SELFPAY ==
[2020-05-22 14:54] VITALS: BMI 29.4
--- NOTE | 2020-08-12 10:06 | PCWOUND ---
WOCN NOTE Patient cancelled appointment for 08-13-20, states she is healed.
== END 2020-08-19 09:33 | disposition home or self-care (01) ==
LOC: ANHWOC 07:30
PROVIDERS: Visit Provider Student in an Organized Health Care Education/Training Program
DX: T81.31XD Disruption of external operation (surgical) wound, not elsewhere classified, subsequent encounter (principal)
CPT/HCPCS: 99212; 99213; A9270; G0463

== ENCOUNTER 2020-11-17 19:24 | Emergency (ER) | payer BC, SELFPAY ==
--- NOTE | 2020-11-17 20:01 | ED.FEMALEGU ---
HPI - Female Genitourinary General Chief complaint: Urogenital-Female Stated complaint: poss uti Time Seen by Provider: 11/17/20 19:58 Source: patient and RN notes reviewed Mode of arrival: ambulatory Limitations: no limitations History of Present Illness HPI Narrative: 30-year-old female presents concern for dysuria, frequency, pelvic discomfort, right flank pain. Reports symptoms started Wednesday, worsened today with the start of pelvic discomfort. She denies any abdominal pain, nausea, vomiting, fever, body aches. Denies intervention. Reports she has a ParaGard, was able to feel the strings today. Reports her last menstrual period was spotty. Reports she is recently treated with Diflucan for a yeast infection in her scar area. MD elicited complaint: UTI Related Data Allergies Allergy/AdvReac Type Severity Reaction Status Date / Time amoxicillin Allergy Severe Anaphylaxis Verified 11/17/20 19:45 Penicillins Allergy Severe Anaphylaxis Verified 11/17/20 19:45 Latex, Natural Rubber Allergy Rash Verified 11/17/20 19:45 ibuprofen AdvReac Vomiting Verified 11/17/20 19:45 Review of Systems Review of Systems: CONSTITUTIONAL: Denies malaise, chills, sweats, or fever. CARDIOVASCULAR: Denies chest pain, palpitations, or edema. RESPIRATORY: Denies cough or dyspnea. GASTROINTESTINAL: Denies abdominal pain, nausea, vomiting, diarrhea GENITOURINARY: Reports dysuria frequency, urgency, flank pain, suprapubic discomfort, hematuria. SKIN: Denies vaginal rash or itching. MUSCULOSKELETAL: Denies myalgia. All systems reviewed & are unremarkable except as noted in HPI and below PMFSH Past Medical History Medical History History of smoking Lupus Obesity and not yet delivered Social History Social History Years smoked: 3 Smoking status: Former smoker Second hand tobacco smoke exposure: No Substance use: never Gender identity (if verbalized by the patient): Female Sexual Orientation (if Verbalized by the Patient): Straight or Heterosexual Spiritual care concerns: No Comments At time of signature, agree with nursing past medical, surgical, social and family history. There is no relevant family history pertinent to the presenting complaint Exam Narrative: GENERAL: Well-appearing, well-nourished, and in no acute distress. HEAD: Normocephalic. EYES: PERRLA, conjunctivae clear. NECK: Supple. No lymphadenopathy CHEST: Clear to auscultation. No respiratory distress. HEART: Regular rate and rhythm. ABDOMEN: Soft, nontender upon palpation, nondistended, normal active bowel sounds, no palpable or pulsatile masses, no guarding. No CVA tenderness SKIN: Warm, dry, no visible rash. Mild erythema noted around scar, no open skin, no warmth, edema, induration noted. NEURO: Alert and oriented x3. PSYCH: Normal mood and affect Course Course Emergency Course: Patient is following up with her primary care doctor regarding treatment of scar. Patient is aware of diagnosis, understands and agrees to treatment plan. Anticipatory guidance given. Patient agrees to follow-up as directed and is aware of reasons to seek care at the emergency department. Portions of this record may have been created with voice recognition software Vital Signs Vital signs: Reviewed. MDM - Female Genitourinary MDM Narrative Medical decision making narrative: Exam findings and UA show no acute concerns or changes; patient is non-toxic appearing and is in no distress. Patient is appropriate for outpatient treatment and follow-up. Lab Data Labs: Urine Characteristics Cloudy Critical Care Time Critical Care Time Critical Care Time: No Discharge Plan Discharge Clinical Impression: Urinary tract infection Qualifiers: Urinary tract infection type: s
[2020-11-17 20:15] VITALS: BP 128/73; PULSE 88; RESP 14; TEMP 36.7
== END 2020-11-17 20:17 | disposition home or self-care (01) ==
PROVIDERS: Emergency Provider Nurse Practitioner; PCP Nurse Practitioner Family
DX: N39.0 Urinary tract infection, site not specified (principal); Z87.891 Personal history of nicotine dependence
CPT/HCPCS: 81003; 87077; 87086; 87088; 87186; 99213; G0463

== ENCOUNTER → 2020-12-03 03:50 | Outpatient (CLI) | payer BC, SELFPAY ==
[2020-12-04 01:26] LABS: SARS-CoV-2 RNA PCR Negative
== END ==
PROVIDERS: PCP Nurse Practitioner Family; Visit Provider Obstetrics & Gynecology
DX: Z01.812 Encounter for preprocedural laboratory examination (principal); Z20.822 Contact with and (suspected) exposure to COVID-19
CPT/HCPCS: C9803; U0003; U0005

== ENCOUNTER 2020-12-06 01:50 | Day surgery (SDC) | payer BC, MEDICAID, SELFPAY ==
[2020-11-28 15:09] VITALS: BMI 31.8
--- NOTE | 2020-12-03 12:07 | PM.IMHP ---
H&P: HPI History of Present Illness Date/Time: 12/03/20 12:07 This is a 22-year-old female who underwent section months back and wound has not been healing well. She had treatments continues to leaking regularly. Risks benefits reviewed in Chief Complaint: Poorly healing wound Review of Systems Review of Systems: All systems reviewed & are unremarkable except as noted in HPI and below PMFSH Past Medical History Medical History History of smoking Lupus Obesity and not yet delivered Social History Social History Years smoked: 3 Smoking status: Former smoker Tobacco type: e-cigarettes/vaping Second hand tobacco smoke exposure: No Alcohol intake: current Alcohol use details: RARE Substance use: never Substance use type: does not use Additional living arrangements comments: WITH Gender identity (if verbalized by the patient): Female Sexual Orientation (if Verbalized by the Patient): Straight or Heterosexual Spiritual care concerns: No Meds Home Medications and Allergies Home Medications Medication Instructions Recorded Confirmed Type No Home Medications 11/28/20 11/28/20 History Allergies Allergy/AdvReac Type Severity Reaction Status Date / Time amoxicillin Allergy Severe Anaphylaxis Verified 11/28/20 15:07 Penicillins Allergy Severe Anaphylaxis Verified 11/28/20 15:07 Latex, Natural Rubber Allergy Rash Verified 11/28/20 15:07 ibuprofen AdvReac Vomiting Verified 11/28/20 15:07 Exam Const: General: no acute distress Eyes: General: appearance normal, both eyes and all related structures Neck: Neck: supple and no JVD Thyroid: thyroid normal Resp: Effort & Inspection: normal respiratory effort Auscultation: clear to auscultation bilaterally Cardio: Rate: regular rate Rhythm: regular rhythm GI: Inspection: normal to inspection and other (The wound is centrally and tented and wet in appearance. No evidence infec) GI Palp: Yes Soft to palpation, No Tenderness to palpation present (GI) and No Guarding due to palpation present (GI) Auscultation: normal bowel sounds : General: Yes bladder normal to palpation External Female Exam: normal external appearance Speculum Exam - Vagina: normal vaginal discharge and No vaginal bleeding Speculum Exam - Cervix: nontender Bimanual exam- vagina & uterus: bladder normal to palpation and No Cervical tenderness present OB/external & speculum: No vaginal bleeding Skin: General skin exam: no rashes or lesions noted Extrem: General: normal to inspection and no edema Psych: Mental Status: mental status grossly normal Affect: normal affect Assessment and Plan Additional Plan Impression: His nonhealing wound Plan: wound incision revision
[2020-12-06] VITALS (11 sets, daily range): BP systolic 105–131; BP diastolic 41–76; PULSE 65–100; RESP 12–22; TEMP 36.1–36.4; O2SAT 95–100
--- NOTE | 2020-12-06 07:20 | WPDHPUPDATE1 ---
History and Physical Update Update Date/Time: 12/06/20 07:20 History and Physical has been reviewed, including an updated exam of the patient. There are NO changes in the patient's condition. Risks, benefits, and alternatives have been discussed and questions answered. Patient agrees to proceed with procedure.
[2020-12-06] MEDS: LACTATED RINGERS 1,000 ML 30 ML IV CONT ×2 (10:02→13:15)
--- NOTE | 2020-12-06 10:22 | P.PNAN_ITS ---
Anes - Initial Pre Proc Eval Procedure: Operation Date: 12/06/20 11:15 Proposed Procedures p Scar Incision Revision - Claude Ervin MD Date/Time: 12/06/20 10:22 Surgeon: Claude Ervin MD Pre Op Diagnosis: non healing wound Patient Data Age: 30 Gender: F Height: 1.6 m Weight: 87.1 kg Last Vital Signs Temp 36.4 C L 12/06/20 09:36 Pulse 77 12/06/20 09:36 Resp 16 12/06/20 09:36 BP 119/66 12/06/20 09:36 Pulse Ox 98 12/06/20 09:36 Allergies Allergy/AdvReac Type Severity Reaction Status Date / Time amoxicillin Allergy Severe Anaphylaxis Verified 11/28/20 15:07 Penicillins Allergy Severe Anaphylaxis Verified 11/28/20 15:07 Latex, Natural Rubber Allergy Intermediate Rash Verified 12/06/20 09:51 ibuprofen AdvReac Intermediate Vomiting Verified 12/06/20 09:51 Home Medications Medication Instructions Recorded Confirmed Type hydrocodone-acetaminophen 1 tablet PO Q4H PRN #30 tablet 12/06/20 Rx Patient hx anesthesia problems: none Family hx anesthesia problems: none Results Review: All pre-operative results and documents have been reviewed as part of the pre-operative evaluation. [facility] Past Medical History Medical History History of smoking Lupus Obesity and not yet delivered Social History Social History Years smoked: 3 Smoking status: Former smoker Tobacco type: e-cigarettes/vaping Second hand tobacco smoke exposure: No Alcohol intake: current Alcohol use details: RARE Substance use: never Substance use type: does not use Living arrangements: with family Additional living arrangements comments: WITH Gender identity (if verbalized by the patient): Female Sexual Orientation (if Verbalized by the Patient): Straight or Heterosexual Spiritual care concerns: No Anes - Eval Final PreProcedure Day of Procedure 12/06/20 10:22 Patient weight: obese Heart: regular rate and rhythm Lungs: clear to auscultation Airway: Mallampati scale class III Neurological: alert and oriented Last oral intake: >/= 8 hours ASA classification: III Emergent: no Anesthetic plan: proceed Anesthesia type and monitoring: general LMA and standard monitoring Results Review: All pre-operative results and documents have been reviewed as part of the pre-operative evaluation. Informed Consent: The patient's anesthetic plan and its attendant risks and benefits were discussed with the patient/family/POA. Questions were solicited and answers provided to the satisfaction of the patient/family/POA.
[2020-12-06] MEDS: ceFAZolin 2 GM/D5W 50 ML 2 GM/50 ML BAG IVPB (11:33)
--- NOTE | 2020-12-06 12:05 | P.OP_ITS ---
Procedure Note - Detailed Date of Procedure 12/06/20 Pre-op Diagnosis non healing wound Post-op Diagnosis same Procedure Performed Revision of scar Surgeon Claude Ervin MD Anesthesia general Indications This is a 30-year-old female many months off from section with a poorly healing wound. Findings Poorly healed Pfannenstiel incision Description of Procedure The patient was prepped and draped in the normal sterile fashion and placed in supine position. Under LMA anesthesia 9cc of 1% xylocaine anesthesia was placed along the affected portion of the incision. This was opened in linear fashion and the lateral edges were sharply dissected about 5mm on either side and bloodied edges. Irrigation was undertaken until hemostasis was assured. A 3-0 plain gut was used in [id number] fashion to approximate the fat layer the skin was closed with 4-0 Monocryl and glue. Blood loss was estimated at25cc. All sponge, needle, instrument counts were correct. There were no co mplications. It should be noted that the fascia was completely intact and not affected Estimated Blood Loss 25 Drains No Packing No Pathology none sent Complications No immediate complications Condition stable Disposition PACU
[2020-12-06] MEDS: fentaNYL CITRATE INJ (*CRX) 100 MCG/2 ML VIAL 25 MCG IV PUSH ×4 (12:25→12:50)
--- NOTE | 2020-12-06 12:35 | SUR.PHASEI ---
Patient requesting her own personal Albuterol inhaler, ok'd per Dr. Encinas, 2 puffs of inhaler given
[2020-12-06] MEDS: oxyCODONE HCL (*CRX) 5 MG TAB IR PO (14:04)
== END 2020-12-06 15:00 | disposition home or self-care (01) ==
PROVIDERS: PCP Nurse Practitioner Family; Visit Provider Obstetrics & Gynecology
PROC: 0UT94ZZ Resection of Uterus, Percutaneous Endoscopic Approach (ICD-10-PCS; CPT 13101; principal; 2020-12-06 11:15)
DX: O90.0 Disruption of cesarean delivery wound (principal); F17.290 Nicotine dependence, other tobacco product, uncomplicated; E66.9 Obesity, unspecified; Z68.34 Body mass index [BMI] 34.0-34.9, adult
CPT/HCPCS: 13101; A9270; C9803; J0690; J2250; J2270; J2405; J2704; J3010; J7120; U0003; U0005

== ENCOUNTER 2022-02-04 18:21 | Emergency (ER) | payer BC, MEDICAID, SELFPAY ==
[2022-02-04 18:33] VITALS: BP 136/72; PULSE 90; RESP 16; TEMP 36.6; O2SAT 99
== END 2022-02-04 19:30 | disposition left against medical advice (07) ==
LOC: EXPBETH 18:23
PROVIDERS: Emergency Provider Nurse Practitioner Family; PCP Nurse Practitioner Family
DX: Z53.21 Procedure and treatment not carried out due to patient leaving prior to being seen by health care provider (principal)
CPT/HCPCS: 99199